=== PATIENT | female | born 1985 | race Caucasian/White ===

== ENCOUNTER → 2017-07-28 | Outpatient (CLI) | payer BC ==
[2015-05-11 10:41] VITALS: BMI 32.1
[~2017-07-28] MED LIST: ACE325 PO; ASPI-1064 PO; ASPI-715 PO; ASPI81TA94 PO; BUTA1CAP36 PO; Benzocaine 60 ML TP; DAR100 PO; DIPH-911 PO; DOC100 PO; DOCU240C67 PO; DOXY-179 PO; FOLI20CA2 PO; GRIS500T PO; HYDR2TAB4 PO; IBU800 PO; IBUP200C PO; IBUP600T22 PO; IBUP800T37 PO; LEVO75TA68 PO; Lanolin TP; MET2 PO; METH0.2T6 PO; OXYC-865 PO; PER PO; PREN-85 PO; PRO100 PO; TUCKS TP; vitamin b6 PO
[2017-07-28 12:15] LABS: PLATELET COUNT, AUTOMATED 353 K/uL (150-450)
== END ==
LOC: LAB 11:26
DX: A07.8 Other specified protozoal intestinal diseases (principal)
CPT/HCPCS: 36415; 81001; 81025; 82040; 82247; 82310; 82374; 82435; 82565; 82947; 84075; 84132; 84155; 84295; 84439; 84443; 84450; 84460; 84479; 84520; 85025

== ENCOUNTER → 2017-07-29 | Outpatient (CLI) | payer BC ==
[2015-05-11 10:41] VITALS: BMI 32.1
[2017-07-29 20:44] LABS: PLATELET COUNT, AUTOMATED 338 K/uL (150-450)
== END ==
LOC: LAB 20:22
PROVIDERS: ATTEND Family Medicine
DX: M79.1 Myalgia (principal)
CPT/HCPCS: 36415; 81001; 82040; 82247; 82310; 82374; 82435; 82550; 82565; 82947; 83735; 84075; 84100; 84132; 84155; 84295; 84450; 84460; 84520; 85025

== ENCOUNTER → 2017-09-06 | Outpatient (CLI) | payer BC ==
[2015-05-11 10:41] VITALS: BMI 32.1
== END ==
LOC: LAB 15:43
PROVIDERS: ATTEND Family Medicine
DX: E05.00 Thyrotoxicosis with diffuse goiter without thyrotoxic crisis or storm (principal); E83.119 Hemochromatosis, unspecified
CPT/HCPCS: 36415; 84439; 84443; 84480

== ENCOUNTER → 2017-11-15 | Outpatient (CLI) | payer BC ==
[2015-05-11 10:41] VITALS: BMI 32.1
== END ==
LOC: LAB 13:55
PROVIDERS: ATTEND Family Medicine
DX: E05.00 Thyrotoxicosis with diffuse goiter without thyrotoxic crisis or storm (principal)
CPT/HCPCS: 36415; 84439; 84443; 84480

== ENCOUNTER → 2018-08-12 | Outpatient (CLI) | payer BC ==
[2015-05-11 10:41] VITALS: BMI 32.1
== END ==
LOC: LAB 11:42
DX: Z32.00 Encounter for pregnancy test, result unknown (principal)
CPT/HCPCS: 36415; 84702